=== PATIENT | female | born 1970 | race African-American/Black ===

== ENCOUNTER 2022-06-09 13:45 | Emergency (ER) | payer MEDICAID ==
[~2022-06-09] VITALS: Ht 162.6 cm; Wt 74.0 kg
[2022-06-09 14:10] VITALS: BP 141/98
[2022-06-09] MEDS ORDERED: SULF1TAB48 MT (17:34)
== END 2022-06-09 17:47 | disposition home or self-care (01) ==
LOC: ER 13:45
DX: S69.81XA Other specified injuries of right wrist, hand and finger(s), initial encounter (principal); X58.XXXA Exposure to other specified factors, initial encounter; Y93.9 Activity, unspecified; Y92.9 Unspecified place or not applicable; Z98.890 Other specified postprocedural states
CPT/HCPCS: 99281